=== PATIENT | female | born 1955 | race Caucasian/White ===

== ENCOUNTER 2017-03-20 18:31 | Emergency (ER) | payer OTHER ==
[~2017-03-20] VITALS: Ht 162.6 cm; Wt 121.6 kg
[~2017-03-20 18:31] MED LIST: AMLODIPINE BESY10 MG PO; AMLODIPINE BESYL5 MG PO; ASPIR-LOW81 MG PO; AZOR 10/20 M1 TABLET PO; BACTRIM,SEPT1 TABLET PO; BENTYL10 MG PO; CLOPIDOGREL75 MG PO; COLD & FLU FIG1 EACH PO; DOXYCYCLINE HY100 M1 PO; FLEXERIL10 MG PO; FLONASE16 G1 BOTH NARES; HYDROCHLOROTHIA25 MG PO; HYDROMET SYRUP480 ML PO; KEFLEX500 MG PO; LEVAQUIN750 MG PO; LISINOPRIL20 MG PO; LOPRESSOR100 M1 PO; LOPRESSOR25 MG PO; MECLIZINE HCL25 M2 NG; MEDROL DOSEPAK4 MG PO; MOTRIN800 MG PO; MOUTHSPRAY10 ML MM; NAPROSYN250 MG PO; NORVASC10 MG PO; PANTOPRAZOLE SO40 MG PO; PERCOCET 5/31 TABLET PO; PHENERGAN1.25 MG/ML PO; PLAVIX75 MG PO; PREDNISONE20 MG PO; PROTONIX40 MG PO; ROBAFEN AC SYR473 ML PO; SOMA350 M1 PO; TOPAMAX25 MG PO; TOPROL XL100 MG PO; TRAMADOL HCL50 MG PO; ULTRAM50 MG PO; VENTOLIN HFA18 GM IH; VIBRAMYCIN100 MG PO; ZITHROMAX Z-PA250 MG PO; ZOFRAN4 MG PO
[2017-03-20] MEDS ORDERED: ZITHROMAX Z-PA250 MG PO (20:20)
[2017-03-20 20:23] VITALS: BP 129/82
== END 2017-03-20 20:23 | disposition home or self-care (01) ==
LOC: EME 18:31
DX: J32.9 Chronic sinusitis, unspecified (principal); J02.9 Acute pharyngitis, unspecified; Z88.0 Allergy status to penicillin; J44.9 Chronic obstructive pulmonary disease, unspecified; I10 Essential (primary) hypertension; Z79.02 Long term (current) use of antithrombotics/antiplatelets; Z87.891 Personal history of nicotine dependence
CPT/HCPCS: 99281; 99283

== ENCOUNTER 2017-06-07 14:07 | Emergency (ER) | payer OTHER ==
[~2017-06-07] VITALS: Ht 162.6 cm; Wt 125.1 kg
[2017-06-07] MEDS ORDERED: ULTRAM50 MG PO (15:18)
[2017-06-07 16:12] VITALS: BP 138/114
== END 2017-06-07 16:14 | disposition home or self-care (01) ==
LOC: EME 14:07
DX: S40.012A Contusion of left shoulder, initial encounter (principal); S43.402A Unspecified sprain of left shoulder joint, initial encounter; W17.89XA Other fall from one level to another, initial encounter; I10 Essential (primary) hypertension; J44.9 Chronic obstructive pulmonary disease, unspecified; F41.9 Anxiety disorder, unspecified; Z87.891 Personal history of nicotine dependence; Z88.0 Allergy status to penicillin; Z88.5 Allergy status to narcotic agent; Z88.6 Allergy status to analgesic agent; Z88.8 Allergy status to other drugs, medicaments and biological substances
CPT/HCPCS: 73000; 73030; 99281; 99284

== ENCOUNTER 2017-06-08 20:14 | Emergency (ER) | payer OTHER ==
[~2017-06-08] VITALS: Ht 162.6 cm; Wt 121.3 kg
[2017-06-08 21:57] VITALS: BP 143/59
== END 2017-06-08 21:57 | disposition home or self-care (01) ==
LOC: EME 20:14
DX: S20.212A Contusion of left front wall of thorax, initial encounter (principal); W18.30XA Fall on same level, unspecified, initial encounter; I10 Essential (primary) hypertension; J44.9 Chronic obstructive pulmonary disease, unspecified; E66.01 Morbid (severe) obesity due to excess calories; Z68.42 Body mass index [BMI] 45.0-49.9, adult; F41.9 Anxiety disorder, unspecified; Z88.0 Allergy status to penicillin; Z87.891 Personal history of nicotine dependence
CPT/HCPCS: 71046; 99281; 99284

== ENCOUNTER 2017-10-12 00:56 | Emergency (ER) | payer OTHER ==
[~2017-10-12] VITALS: Ht 162.6 cm; Wt 123.2 kg
[2017-10-12 02:56] LABS: APPEARANCE CLOUDY ((CLEAR)); BILIRUBIN NEGATIVE; BLOOD SMALL; COLOR YELLOW ((YELLOW)); GLUCOSE (STRIP) NEGATIVE; KETONES NEGATIVE; LEUKOCYTES LARGE; NITRITE POSITIVE; PROTEIN (STRIP) 30; SPECIFIC GRAVITY 1.016 (1.000-1.030); UROBILINOGEN 0.2 MG/DL (0.2-1.0)
[2017-10-12 03:20] LABS: BACTERIA 1+ /HPF; EPITHELIAL CELLS NONE SEEN /HPF; MUCUS 3+ /LPF; RED BLOOD CELLS 0-5 /HPF (0-5); UCUL ADDED? YES; WHITE BLOOD CELLS TNTC /HPF (0-5)
[2017-10-12] MEDS ORDERED: CIPRO500 MG PO (03:26)
[2017-10-12] MEDS ORDERED: PYRIDIUM200 MG PO (03:26)
[2017-10-12 03:36] VITALS: BP 138/88
== END 2017-10-12 03:37 | disposition home or self-care (01) ==
LOC: EME 00:56
PROVIDERS: Physician Assistant
DX: N39.0 Urinary tract infection, site not specified (principal); J44.9 Chronic obstructive pulmonary disease, unspecified; I10 Essential (primary) hypertension; F41.9 Anxiety disorder, unspecified; Z87.891 Personal history of nicotine dependence; Z86.73 Personal history of transient ischemic attack (TIA), and cerebral infarction without residual deficits; Z88.0 Allergy status to penicillin; Z88.5 Allergy status to narcotic agent; Z88.6 Allergy status to analgesic agent; Z88.8 Allergy status to other drugs, medicaments and biological substances
CPT/HCPCS: 81003; 87077; 87086; 87186; 99281; 99284